=== PATIENT | female | born 1985 | race Two or more races ===

== ENCOUNTER 2016-11-05 07:06 | Emergency (ER) | payer OTHER ==
[2016-11-05 07:33] VITALS: O2SAT 98
[2016-11-05] MEDS ORDERED: MAALOX/HYOSC GI COCKTAIL 45 ML BOTTLE PO ONE (07:46)
[2016-11-05] MEDS ORDERED: ONDANSETRON DISINTEGRATING 4 MG TAB PO ONE (07:50)
[2016-11-05] MEDS ORDERED: MAALOX/LIDO/HYOSC GI COCKTAIL 55 ML BOTTLE ONE (08:07)
[2016-11-05 08:16] LABS: % IMMATURE GRANULYOCYTES 0.4 % (0.0-1.1); ABSOLUTE IMMATURE GRANULOCYTES 0.03 10^3/uL (0.00-0.10); ADD DIFF? NO; ADD MORPH? NO; ADD SCAN? NO; ATYPICAL LYMPHOCYTE FLAG 0 (0-99); FRAGMENT RBC FLAG 0 (0-99); HEMATOCRIT 44.4 % (38.0-47.0); HEMOGLOBIN 15.4 g/dL (12.6-16.3); LEFT SHIFT FLG 0 (0-99); LIPEMIA HEMOLYSIS FLAG 90 (0-99); MEAN CELL HEMOGLOBIN 30.1 pg (27.9-34.1); MEAN CELL HEMOGLOBIN CONCENTR. 34.7 g/dL (32.4-36.7); MEAN CELL VOLUME 86.7 fL (81.5-99.8); MEAN PLATELET VOLUME 10.3 fL (8.7-11.7); PLATELET CLUMPS FLAG 0 (0-99); PLATELET COUNT 256 10^3/uL (150-400); RED BLOOD CELL COUNT 5.12 10^6/uL (4.18-5.33); RED CELL DISTRIBUTION WIDTH 11.7 % (11.5-15.2)
[2016-11-05 08:30] LABS: ALANINE AMINOTRANSFERASE 21 IU/L (9-52); ALBUMIN 3.9 g/dL (3.5-5.0); ALKALINE PHOSPHATASE 59 IU/L (38-126); ANION GAP 7 mEq/L (8-16); ASPARTATE AMINOTRANSFERASE 22 IU/L (14-46); BILIRUBIN,TOTAL 0.8 mg/dL (0.1-1.4); CALCIUM 9.3 mg/dL (8.5-10.4); CARBON DIOXIDE 24 mEq/l (22-31); CHLORIDE 107 mEq/L (97-110); CREATININE 0.8 mg/dL (0.6-1.0); GLOMERULAR FILTRATION RATE > 60; GLUCOSE 96 mg/dL (70-100); POTASSIUM 4.1 mEq/L (3.5-5.2); SODIUM 138 mEq/L (134-144); TOTAL PROTEIN 7.4 g/dL (6.3-8.2)
--- NOTE | 2016-11-05 08:46 | UCPHY ---
H & P Patient Type: Established Chief Complaint Nursing Narrative: pt reports diffuse abd. pain, describes as "burning". pt reports it woke her up at midnight. 2nd episode this week. Time Seen by Provider: 11/05/16 07:34 HPI/ROS: This patient awakened with burning epigastric pain around midnight the morning of presentation. This is a 2nd similar episode this week. She feels that there is some correlation between dietary intake and these burning epigastric episodes. She explains that she had sausage for dinner and the previous episode she had a cheeseburger. She has mild nausea without vomiting associated with her symptoms. She reports associated increase in belching and flatus. She had [id number] episodes of loose stool as well. She notes no clear exacerbating or alleviating factors except the seem to be worse when she is lying supine compared to being seated upright. She reports mild burning symptoms in her chest intermittently as well. Currently no chest pain. ROS: No fevers or chills. No other constitutional symptoms. HEENT: No URI symptoms. Pulmonary: No shortness of breath. No pleuritic pain. Cardiovascular : No lightheadedness. : No urinary symptoms. Last menstrual period was normal timing 2 weeks ago. No vaginal discharge. 10 point ROS is otherwise negative. Source: Patient Exam Limitations: No limitations - Personal History Current Tetanus Diphtheria and Acellular Pertussis (TDAP): Yes - Medical/Surgical History PMH: Previous history of gastritis partial control by Nexium. She has been off Nexium for the past 3 months. Hx Asthma: No Hx Chronic Respiratory Disease: No Hx Diabetes: No Hx Cardiac Disease: No Hx Renal Disease: No Hx Cirrhosis: No Hx Alcoholism: No Hx HIV/AIDS: No Hx Splenectomy or Spleen Trauma: No Other PMH: denies - Family History Significant Family History: No pertinent family hx - Social History Smoking Status: Never smoked Alcohol Use: Occasionally Drug Use: None Additional Social History: Patient likes beer. However she notes that her symptoms worse when she drinks beer - Physical Exam Exam: General Appearance: Alert, no distress. Eyes: Pupils equal and round no pallor or injection. ENT, Mouth: Mucous membranes moist. Respiratory: There are no retractions, lungs are clear to auscultation. Cardiovascular: Regular rate and rhythm. Gastrointestinal: Normoactive bowel sounds. She has mild epigastric tenderness that reproduces her symptoms. No organomegaly. No lower belly tenderness. Back: No CVA tenderness Neurological: Alert with no focal deficits. Skin: Warm and dry, no rashes. Musculoskeletal: Neck is supple nontender. Extremities are symmetrical, full range of motion. Psychiatric: Mood and affect are normal DIFFERENTIAL DIAGNOSIS: After history and physical exam differential diagnosis was considered for gastritis, GERD, hepatitis, cholecystitis Constitutional: Initial Vital Signs Temperature (C) 36.3 C 11/05/16 07:30 Heart Rate 75 11/05/16 07:30 Respiratory Rate 16 11/05/16 07:30 Blood Pressure 135/96 H 11/05/16 07:30 O2 Sat (%) 98 11/05/16 07:30 O2 Delivery Mode Room Air Allergies/Adverse Reactions: No Known Allergies Allergy (Verified 11/05/16 08:44) Home Medications: Medication Instructions Recorded Pantoprazole Sodium [Protonix 40mg 40 mg PO DAILY #30 tab 11/05/16 (*)] Zoloft 100mg (*) 11/05/16 Medical Decision Making ED Course/Re-evaluation: IV, GI cocktail with near resolution of her symptoms. Zofran with relief of nausea. Labs: Normal CBC and comp metabolic panel. HCG is negative. Discussion: Findings consistent with gastritis and GERD. She has a benign exam and no concerning findings on workup. We ruled out ectopic with a negative HCG. - Data Points Laboratory Results: Laboratory Results 11/05/16 08:11 11/05/16 08:11 11/05/16 08:11 WBC 6.96 10^3/uL (3.80-9.50) RBC 5.12 10^6/uL (4.18-5.33) Hgb 15.4 g/dL (12.6-16.3) Hct 44.4 % (38.0-47.0) MCV 86.7 fL (81.5-99.8) MCH 30.1 pg (27.9-34.1) MCHC 34.7 g/dL (32.4-36.7) RDW 11.7 % (11.5-15.2) Plt Count 256 10^3/uL (150-400) MPV 10.3 fL (8.7-11.7) Neut % (Auto) 69.9 % (39.3-74.2) Lymph % (Auto) 22.1 % (15.0-45.0) [place] % (Auto) 6.0 % (4.5-13.0) Eos % (Auto) 1.3 % (0.6-7.6) Baso % (Auto) 0.3 % (0.3-1.7) Nucleat RBC Rel Count 0.0 % (0.0-0.2) Absolute Neuts (auto) 4.86 10^3/uL (1.70-6.50) Absolute Lymphs (auto) 1.54 10^3/uL (1.00-3.00) Absolute Monos (auto) 0.42 10^3/uL (0.30-0.80) Absolute Eos (auto) 0.09 10^3/uL (0.03-0.40) Absolute Basos (auto) 0.02 10^3/uL (0.02-0.10) Absolute Nucleated RBC 0.00 10^3/uL (0-0.01) Immature Gran % 0.4 % (0.0-1.1) Immature Gran # 0.03 10^3/uL (0.00-0.10) Sodium 138 mEq/L (134-144) Potassium 4.1 mEq/L (3.5-5.2) Chloride 107 mEq/L (97-110) Carbon Dioxide 24 mEq/l (22-31) Anion Gap 7 mEq/L (8-16) BUN 8 mg/dL (7-23) Creatinine 0.8 mg/dL (0.6-1.0) Estimated GFR > 60 Glucose 96 mg/dL (70-100) Calcium 9.3 mg/dL (8.5-10.4) Total Bilirubin 0.8 mg/dL (0.1-1.4) AST 22 IU/L (14-46) ALT 21 IU/L (9-52) Alkaline Phosphatase 59 IU/L (38-126) Total Protein 7.4 g/dL (6.3-8.2) Albumin 3.9 g/dL (3.5-5.0) Lipase 53.0 IU/L (23-300) Beta HCG, Qual NEGATIVE Medications Given: Discontinued Medications Miscellaneous Medication (Gi Cocktail(No Lido)) 45 ml PO EDNOW ONE Stop: 11/05/16 07:47 Last Admin: 11/05/16 08:11 Dose: 45 ml Ondansetron HCl (Zofran Odt) 8 mg PO EDNOW ONE Stop: 11/05/16 07:51 Last Admin: 11/05/16 07:55 Dose: 8 mg Departure - Departure Disposition: Home, Routine, Self-Care Clinical Impression: Gastritis Qualifiers: Gastritis type: unspecified gastritis Chronicity: acute Gastritis bleeding: presence of bleeding unspecified Qualifier Code: (K29.00) Acute gastritis without bleeding GERD (gastroesophageal reflux disease) Qualifiers: Esophagitis presence: esophagitis presence not specified Qualifier Code: (K21.9 ) Gastro-esophageal reflux disease without esophagitis Condition: Good Instructions: Gastritis (ED), Diet for Stomach Ulcers and Gastritis (ED) Additional Instructions: Diagnosis: 1. Gastritis 2. GERD Your labs today are normal. Plan: Light diet Protonix acid mu The elevate the head ear bed a bit Maalox in addition if needed [id number] Follow up with her primary care physician Go to the emergency department for any significant worsening despite treatment plan Referrals: Filomena Munoz PA [Primary Care Provider] - As per Instructions Prescriptions: Pantoprazole Sodium [Protonix 40mg (*)] 40 mg PO DAILY #30 tab - PQRS PQRS Measurement: NA
[2016-11-05 09:05] VITALS: BP 123/66; PULSE 70; RESP 14; TEMP 96.8
== END 2016-11-05 09:05 | disposition home or self-care (01) ==
LOC: CED 07:06
DX: K29.00 Acute gastritis without bleeding (principal); K21.9 Gastro-esophageal reflux disease without esophagitis
CPT/HCPCS: 80053-PO; 83690-PO; 84703-PO; 85025-PO; 99214-PO; G0463-PO